=== PATIENT | male | born 1945 | race Caucasian/White ===

== ENCOUNTER 2021-05-02 09:57 | Emergency (ER) | payer BC, MEDICARE, SELFPAY ==
--- NOTE | ~2021-05-02 | CT_ITS ---
EXAMINATION: CT BRAIN AND CHEST X-RAY. CLINICAL INFORMATION: AMS. Confused. COMPARISON: CT brain 11/29/2019 TECHNIQUE: Chest one view. 5 mm thin axial and reformatted 2 mm thin sagittal and coronal images of brain were obtained without contrast. DLP [id number] FINDINGS: Chest: The lungs are well-expanded and clear. The heart size and pulmonary vascularity is normal. No gross bony abnormality seen. Brain: There is no acute intra-axial, extra-axial bleed, masses or midline shift. There is no acute infarct in evolution. There is no edema. The lateral ventricles are symmetrical in size and configuration and enlarged. Bone windows reveal no calvarial abnormality. There is no scalp soft tissue abnormality. Bilateral paranasal sinuses and mastoid air cells are well-aerated. CT/CT head/brain wo con IMPRESSION: Minimal left basilar atelectatic changes. Rest of the lungs are clear. No acute intracranial process seen Moderate cerebral volume loss.
[2021-05-02 10:04] VITALS: BP 146/69; BP 150/90; PULSE 78; PULSE 85; RESP 20; TEMP 36.8; O2SAT 96; BMI 26.9
--- NOTE | 2021-05-02 10:59 | ECG_ITS ---
Test Reason : ALTERED MENTAL Blood Pressure : / mmHG Vent. Rate : 074 BPM Atrial Rate : 074 BPM P-R Int : 174 ms QRS Dur : 096 ms QT Int : 430 ms P-R-T Axes : 033 -09 017 degrees QTc Int : 477 ms Sinus rhythm with frequent Premature ventricular complexes Otherwise normal ECG No previous ECGs available Referred By: Renetta Beasley Electronically Signed By:STANISLAW HART MD
--- NOTE | 2021-05-02 11:04 | PC.NURSE ---
daughter akash contacted. plan for cm to get involved after mc.
[2021-05-02 11:39] VITALS: BP 148/90; PULSE 74; RESP 16; O2SAT 98
[2021-05-02 11:52] LABS: MANUAL DIFF FLAG NO
[2021-05-02 11:55] LABS: Basophils Percent Auto 0.5 % (0-2); Eosinophils Absolute Auto 0.3 X10*3/uL (0.0-0.4); Eosinophils Percent Auto 3.8 % (0-4); Hemoglobin 12.4 g/dl (14.0-18.0); Imm Gran Abs Auto 0.03 X10*3/uL (0.00-0.03); Imm Gran Pct Auto 0.4 % (0.0-0.4); Lymphocytes Absolute Auto 2.2 X10*3/uL (1.2-4.9); Lymphocytes Percent Auto 25.8 % (20-40); Mean Corpuscular HGB Conc 34.4 g/dl (31.0-36.0); Mean Corpuscular Hemoglobin 33.2 pg (27.0-33.0); Mean Corpuscular Volume 96.3 fL (80-98); Mean Platelet Volume 10.4 fL (9.4-12.4); Monocytes Absolute Auto 0.6 X10*3/uL (0.1-1.2); Monocytes Percent Auto 7.5 % (2-11); Neutrophils Absolute Auto 5.3 X10*3/uL (2.0-8.3); Platelet Count 215 X10*3/uL (160-400); Red Blood Count 3.74 X10*6/uL (4.60-5.80); Red Cell Distribution Width 12.4 % (11.0-16.0); White Blood Count 8.5 X10*3/uL (4.8-10.8)
[2021-05-02 11:59] LABS: Prothrombin Time 11.3 SEC (10.8-13.0)
[2021-05-02 12:02] LABS: Partial Thromboplastin Time 38.2 SEC (24.1-38.0)
[2021-05-02 12:11] LABS: COVID-19 Test Negative (Negative)
[2021-05-02 12:23] LABS: Alanine Aminotransferase 33 U/L (0-40); Albumin Level 4.3 g/dL (3.5-5.0); Alkaline Phosphatase 72 U/L (39-117); Anion Gap 15 (12-20); Aspartate Amino Transferase 32 U/L (5-37); Bilirubin Direct 0.2 mg/dL (0.0-0.5); Bilirubin Total 0.4 mg/dL (0.0-1.0); Blood Urea Nitrogen 26 mg/dL (9-16); Carbon Dioxide 23 mmol/L (22-29); Chloride 105 mmol/L (96-108); Creatinine Clr Calc Pharmacy 31.4; Estimated Glomerular Filt Rate 36; Glucose Random 120 mg/dL (60-115); Lipase 49 U/L (8-78); Magnesium 1.8 mg/dL (1.6-2.6); Potassium 4.4 mmol/L (3.3-5.1); Sodium 139 mmol/L (135-145)
[2021-05-02] MEDS: 0.9 % Sodium Chloride 1,000 ML 999 ML IVCONT (13:14)
[2021-05-02 13:25] VITALS: BP 146/89; PULSE 78; RESP 16
[2021-05-02 13:36] LABS: Glucose Urine UA 250 MG/DL (NEG); Leukocyte Esterase Urine NEG (NEG); Nitrite Urine NEG (NEG); Urine Blood NEG (NEG); Urine Ketones NEG (NEG); Urine Protein TRACE MG/DL (NEG-TRACE)
[2021-05-02 13:37] LABS: Appearance Urine CLEAR; Color Urine YELLOW
--- NOTE | 2021-05-02 13:38 | ED.AMS ---
HPI - Altered Mental Status General Chief Complaint: Altered Mental Status Stated Complaint: AMS Time Seen by Provider: 05/02/21 10:49 Source: patient and EMS Mode of arrival: EMS History of Present Illness HPI narrative: 75-year-old male with past medical history of diabetes presenting to the ED BIBA after being found trying to enter [facility] confused/ AMS. Patient reports he was trying to get home/ the store but got lost and was driving with a suspended license. 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 Denies known injury/trauma or fall. Denies headache, CP / SOB, abdominal pain, nausea /vomiting, fever, chills. MD complaint: altered mental status and confusion Related Data Allergies Allergy/AdvReac Type Severity Reaction Status Date / Time No Known Allergies Allergy Unverified 05/02/21 10:59 Review of Systems Review of Systems: Constitutional: No Fever, No Chills, No Fatigue, No Malaise Cardiovascular: No Chest Pain, No SOB, No Edema Respiratory: No Cough, No Wheezing, No Dyspnea Gastrointestinal: No Nausea, No Vomiting, No Diarrhea, No Abdominal pain Genitourinary: No Dysuria, No Urinary Frequency, No Hematuria Musculoskeletal: No joint pain, No Joint Swelling Skin: No Skin Lesions, No rash Neuro: No Weakness, No Numbness, +AMS/confusion No Headache Yes all other systems are reviewed and are negative Neurologic: Reports confusion Psychiatric: Psychiatric: Reports confusion [facility] Past Medical History Attestation statement: The following information was validated with the patient. Medical History (Updated 05/02/21 @ 13:53 by ABDIAZIZ Queen) Diabetes Social History Social History Advance Directives: No Advance Directives Information Provided: No Physical Exam Vital Signs: Vital Signs: Last Vital Signs Temp 98.2 F 05/02/21 15:36 Pulse 72 05/02/21 15:36 Resp 12 05/02/21 15:36 BP 130/69 05/02/21 15:36 Pulse Ox 96 05/02/21 15:36 Body Mass Index 26.9 Const: Other: Pleasantly confused General: cooperative, comfortable, no acute distress and confusion Orientation/consciousness: oriented to person, oriented to place and confusion Limitations: no limitations HENMT: Head: Yes normal to inspection and Yes atraumatic Ears: hearing grossly normal bilaterally General nose exam: Normal external nose present Face and sinus: Yes normal facial exam Mouth: Normal oral and palatal mucosa present Eyes: General: appearance normal, both eyes and all related structures Pupils: Equal, round and reactive pupils present EOM: EOMs intact bilaterally Neck: Neck: Yes normal visual inspection and Yes no meningeal signs Resp: Effort & Inspection: normal respiratory effort Auscultation: clear to auscultation bilaterally, no rales and no wheezes Cardio: Rate: regular rate Heart sounds: S1 normal heart sound present and S2 normal heart sound present GI: Inspection: Yes normal to inspection Palpation (GI): Soft to palpation, nontender, no guarding and not rigid Skin: Rashes: no rashes Wounds: no wounds Neuro: General: oriented to person, oriented to place, tone normal, moves all extremities, no meningeal signs, no focal motor deficits, CN's II-XI intact bilaterally and confusion Cranial nerves: Yes CN's II-XII intact bilaterally and Yes Equal, round and reactive pupils present Motor exam (neuro): 5/5 motor strength present throughout, Pronator motor function not present and no tremor noted Coordination: [id number] test normal Romberg Test: Negative Extrem: General: Yes normal to inspection Course Course Course Narrative: - glucose 120 - no leukocytosis, H&H at baseline, renal function higher than baseline but chronically elevated > 1L IVF ordered - troponin negative, UA not infected XR chest 1V IMPRESSION: Minimal left basilar atelectatic changes. Rest of the lungs are clear. CT head/brain wo con IMPRESSION: No acute intracranial process seen Moderate cerebral volume loss - physician observation initiated at 1:52 p.m., patient needs more time to be evaluated by case management for possible placement -[id number]-- case management spoke to both the patient's daughters who feel patient is not a danger to himself at home, 1 daughter sees patient daily and drives him to and from work. Danni expressed concern of patients safety of having gas stove as well as vehicle in the house, daughters reported they took away the vehicle, and were recommended to shut the gas off. Patient owns his house /pays bills, owns 2 vehicles, and still works a job 5 days a week, does not qualify for home health aide. Case Management Danni stressed that dementia is a progressive disease and this needs to be addressed / will likely progressively Worsen MDM - Altered Mental Status MDM Narrative Medical decision making narrative: 75-year-old male with past medical history of diabetes presenting to the ED BIBA after being found trying to enter [facility] confused/ AMS. On exam VSS, NAD, A&O x2, pleasantly confused, no focal neuro deficits. No signs of trauma. Spoke to patient's daughter who reports this is patient's baseline, has undiagnosed dementia. 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 States patient does live alone, unknown how he got into a vehicle/ was driving around. They are interested in case management evaluation for help with services Will rule out metabolic / infectious etiology or ICH/CVA vs underlying dementia Plan: EKG, labs, UA, head CT, CXR, reassess, CM consult Medical Records Attestation: I reviewed the patient's medical records. Lab Data Attestation: I reviewed the patient's lab results. Result diagrams: 05/02/21 11:36 05/02/21 11:36 Labs: Lab Results 05/02/21 05/02/21 05/02/21 Range/Units 11:36 11:36 11:36 WBC 8.5 (4.8-10.8) X10*3/uL RBC 3.74 L (4.60-5.80) X10*6/uL Hgb 12.4 L (14.0-18.0) g/dl Hct 36.0 L (42-52) % MCV 96.3 (80-98) fL MCH 33.2 H (27.0-33.0) pg MCHC 34.4 (31.0-36.0) g/dl RDW 12.4 (11.0-16.0) % Plt Count 215 (160-400) X10*3/uL MPV 10.4 (9.4-12.4) fL Immature Gran % (Auto) 0.4 (0.0-0.4) % Neut % (Auto) 62.0 (45-73) % Lymph % (Auto) 25.8 (20-40) % Andrew % (Auto) 7.5 (2-11) % Eos % (Auto) 3.8 (0-4) % Baso % (Auto) 0.5 (0-2) % Lymph # (Auto) 2.2 (1.2-4.9) X10*3/uL Andrew # (Auto) 0.6 (0.1-1.2) X10*3/uL Eos # (Auto) 0.3 (0.0-0.4) X10*3/uL Baso # (Auto) 0.0 (0.0-0.2) X10*3/uL Abs Immat Gran (auto) 0.03 (0.00-0.03) X10*3/uL Absolute Neuts (auto) 5.3 (2.0-8.3) X10*3/uL Absolute Nucleated RBC 0.000 (0.0-0.012) X10*3/uL Nucleated RBC % (auto) 0.0 (0.0-0.2) /100WBC PT 11.3 (10.8-13.0) SEC INR 1.0 (0.9-1.1) APTT 38.2 H (24.1-38.0) SEC Sodium 139 (135-145) mmol/L Potassium 4.4 (3.3-5.1) mmol/L Chloride 105 (96-108) mmol/L Carbon Dioxide 23 (22-29) mmol/L Anion Gap 15 (12-20) BUN 26 H (9-16) mg/dL Creatinine 1.86 H (0.5-1.4) mg/dL Estim Creat Clear Calc 31.4 Estimated GFR 36 Random Glucose 120 H (60-115) mg/dL Calcium 9.0 (8.4-10.2) mg/dL Magnesium 1.8 (1.6-2.6) mg/dL Total Bilirubin 0.4 (0.0-1.0) mg/dL Direct Bilirubin 0.2 (0.0-0.5) mg/dL AST 32 (5-37) U/L ALT 33 (0-40) U/L Alkaline Phosphatase 72 (39-117) U/L Troponin I High Sens (<3.5-35.0) ng/L Total Protein 7.0 (6.5-8.0) g/dL Albumin 4.3 (3.5-5.0) g/dL Lipase 49 (8-78) U/L Urine Color Urine Appearance Urine pH (5.0-8.0) Ur Specific Verner (1.005-1.025) Urine Protein (NEG-TRACE) MG/DL Urine Glucose (UA) (NEG) MG/DL Urine Ketones (NEG) MG/DL Urine Blood (NEG) Urine Nitrite (NEG) Ur Leukocyte Esterase (NEG) Urine Opiates Screen (Not Detect) Ur Barbiturates Screen (Not Detect) Ur Phencyclidine Scrn (Not Detect) Ur Amphetamines Screen (Not Detect) U Benzodiazepines Scrn (Not Detect) Urine Cocaine Screen (Not Detect) U Marijuana (THC) Screen (Not Detect) COVID-19 (NEGRITO) (Negative) COVID-19 Clin Com 05/02/21 05/02/21 05/02/21 Range/Units 11:36 11:36 13:27 WBC (4.8-10.8) X10*3/uL RBC (4.60-5.80) X10*6/uL Hgb (14.0-18.0) g/dl Hct (42-52) % MCV (80-98) fL MCH (27.0-33.0) pg MCHC (31.0-36.0) g/dl RDW (11.0-16.0) % Plt Count (160-400) X10*3/uL MPV (9.4-12.4) fL Immature Gran % (Auto) (0.0-0.4) % Neut % (Auto) (45-73) % Lymph % (Auto) (20-40) % Andrew % (Auto) (2-11) % Eos % (Auto) (0-4) % Baso % (Auto) (0-2) % Lymph # (Auto) (1.2-4.9) X10*3/uL Andrew # (Auto) (0.1-1.2) X10*3/uL Eos # (Auto) (0.0-0.4) X10*3/uL Baso # (Auto) (0.0-0.2) X10*3/uL Abs Immat Gran (auto) (0.00-0.03) X10*3/uL Absolute Neuts (auto) (2.0-8.3) X10*3/uL Absolute Nucleated RBC (0.0-0.012) X10*3/uL Nucleated RBC % (auto) (0.0-0.2) /100WBC PT (10.8-13.0) SEC INR (0.9-1.1) APTT (24.1-38.0) SEC Sodium (135-145) mmol/L Potassium (3.3-5.1) mmol/L Chloride (96-108) mmol/L Carbon Dioxide (22-29) mmol/L Anion Gap (12-20) BUN (9-16) mg/dL Creatinine (0.5-1.4) mg/dL Estim Creat Clear Calc Estimated GFR Random Glucose (60-115) mg/dL Calcium (8.4-10.2) mg/dL Magnesium (1.6-2.6) mg/dL Total Bilirubin (0.0-1.0) mg/dL Direct Bilirubin (0.0-0.5) mg/dL AST (5-37) U/L ALT (0-40) U/L Alkaline Phosphatase (39-117) U/L Troponin I High Sens 4.0 (<3.5-35.0) ng/L Total Protein (6.5-8.0) g/dL Albumin (3.5-5.0) g/dL Lipase (8-78) U/L Urine Color YELLOW Urine Appearance CLEAR Urine pH 6.0 (5.0-8.0) Ur Specific Verner 1.020 (1.005-1.025) Urine Protein TRACE (NEG-TRACE) MG/DL Urine Glucose (UA) 250 H (NEG) MG/DL Urine Ketones NEG (NEG) MG/DL Urine Blood NEG (NEG) Urine Nitrite NEG (NEG) Ur Leukocyte Esterase NEG (NEG) Urine Opiates Screen (Not Detect) Ur Barbiturates Screen (Not Detect) Ur Phencyclidine Scrn (Not Detect) Ur Amphetamines Screen (Not Detect) U Benzodiazepines Scrn (Not Detect) Urine Cocaine Screen (Not Detect) U Marijuana (THC) Screen (Not Detect) COVID-19 (NEGRITO) Negative (Negative) COVID-19 Clin Com See Note 05/02/21 Range/Units 13:27 WBC (4.8-10.8) X10*3/uL RBC (4.60-5.80) X10*6/uL Hgb (14.0-18.0) g/dl Hct (42-52) % MCV (80-98) fL MCH (27.0-33.0) pg MCHC (31.0-36.0) g/dl RDW (11.0-16.0) % Plt Count (160-400) X10*3/uL MPV (9.4-12.4) fL Immature Gran % (Auto) (0.0-0.4) % Neut % (Auto) (45-73) % Lymph % (Auto) (20-40) % Andrew % (Auto) (2-11) % Eos % (Auto) (0-4) % Baso % (Auto) (0-2) % Lymph # (Auto) (1.2-4.9) X10*3/uL Andrew # (Auto) (0.1-1.2) X10*3/uL Eos # (Auto) (0.0-0.4) X10*3/uL Baso # (Auto) (0.0-0.2) X10*3/uL Abs Immat Gran (auto) (0.00-0.03) X10*3/uL Absolute Neuts (auto) (2.0-8.3) X10*3/uL Absolute Nucleated RBC (0.0-0.012) X10*3/uL Nucleated RBC % (auto) (0.0-0.2) /100WBC PT (10.8-13.0) SEC INR (0.9-1.1) APTT (24.1-38.0) SEC Sodium (135-145) mmol/L Potassium (3.3-5.1) mmol/L Chloride (96-108) mmol/L Carbon Dioxide (22-29) mmol/L Anion Gap (12-20) BUN (9-16) mg/dL Creatinine (0.5-1.4) mg/dL Estim Creat Clear Calc Estimated GFR Random Glucose (60-115) mg/dL Calcium (8.4-10.2) mg/dL Magnesium (1.6-2.6) mg/dL Total Bilirubin (0.0-1.0) mg/dL Direct Bilirubin (0.0-0.5) mg/dL AST (5-37) U/L ALT (0-40) U/L Alkaline Phosphatase (39-117) U/L Troponin I High Sens (<3.5-35.0) ng/L Total Protein (6.5-8.0) g/dL Albumin (3.5-5.0) g/dL Lipase (8-78) U/L Urine Color Urine Appearance Urine pH (5.0-8.0) Ur Specific Verner (1.005-1.025) Urine Protein (NEG-TRACE) MG/DL Urine Glucose (UA) (NEG) MG/DL Urine Ketones (NEG) MG/DL Urine Blood (NEG) Urine Nitrite (NEG) Ur Leukocyte Esterase (NEG) Urine Opiates Screen Not Detected (Not Detect) Ur Barbiturates Screen Not Detected (Not Detect) Ur Phencyclidine Scrn Not Detected (Not Detect) Ur Amphetamines Screen Not Detected (Not Detect) U Benzodiazepines Scrn Not Detected (Not Detect) Urine Cocaine Screen Not Detected (Not Detect) U Marijuana (THC) Screen Not Detected (Not Detect) COVID-19 (NEGRITO) (Negative) COVID-19 Clin Com ECG Data ECG #1: Attestation: I personally reviewed and interpreted this ECG as follows: ECG interpretation date: 05/02/21 ECG interpretation time: 11:50 Interpretation: EKG showing normal sinus rhythm with PVCs at a rate of 74. Artifact present. QTC 477. no STEMI Discharge Plan Discharge Clinical Impression: Confusion Patient Disposition: Home, Self-Care Instructions: Dementia (ED) Additional Instructions: you need to follow-up with her primary care doctor Continue taking all home prescribed medications Please do not drive If you have increased confusion, fever, cough, chills, or any falls return to the ED immediately Referrals: Physician,Unknown [Primary Care Provider] - 2 days
[2021-05-02 14:24] LABS: Amphetamine Screen Urine Not Detected (Not Detect); Barbiturates, Urine Not Detected (Not Detect); Benzodiazepines Screen Urine Not Detected (Not Detect); Cannabinoid Screen Urine Not Detected (Not Detect); Cocaine Screen Urine Not Detected (Not Detect); Opiate Screen Urine Not Detected (Not Detect); Phencyclidine Screen Urine Not Detected (Not Detect)
[2021-05-02 15:36] VITALS: BP 130/69; PULSE 72; RESP 12; TEMP 36.8; O2SAT 96
--- NOTE | 2021-05-02 17:02 | MHC.SL.SWA ---
Speech Pathologist Impression: Risk of Aspiration Oral Phase Dysphagia Risk of Aspiration Due to: Reduced Cognition Dysphasia Diet Status: Downgrade Liquid Consistency and Strategies for Safe Swallow: Liquid Intake Recommendation: Thin Liquid Intake Strategies: Small Sips Solid Food Consistency: Dietary Recommendations: Pureed (NDD1) Additional Modifications to Solid Foods: Patient is without his dentures and is edentulous. Patient tolerated pureed solids without difficulty and refused other consistencies, stating that he would not be able to chew without his dentures. Patient is recommended PUREED solids (NDD1) and thin liquids with pills WHOLE or CRUSHED in PUREE. Patient may be able to tolerate more advanced solids once he has his dentures. Recommend re-evaluate once patient has his dentures. Recommend further testing of cognitive linguistic skills. Oral Medication Intake: Whole with Puree Compensatory Strategies and Precautions to be Taken for Safe Swallow: Sitting Upright (90 deg) Small Bites and Sips Rate of Ingestion Change Supervision While Eating and Drinking for Safe Swallow: Total Supervision (1:1) Swallowing Recommended Treatments: Compens. Strategy Educat. Recommendation for Speech: Inpatient Speech Therapy Comment: SENIOR MEDICAL DIRECTOR will continue to follow during hospital stay. Manager Assessment Clinican/Clinical Fellow: No Supervisory Statement: I have reviewed and agree with the student/clinical fellow's documentation: N/A Speech Language Pathologist: Trudi Beltre M.A., [facility]-SENIOR MEDICAL DIRECTOR
--- NOTE | 2021-05-02 18:51 | MHC.CM.ED ---
CM met with patient at request of Renetta Palafox. Pt was driving without a license today, got confused and went to [facility] to ask for directions. They called the police. His car was impounded and [place] [facility] [place] CM met with patient. 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 He told CM he cooks in the microwave and takes care of himself. Pt could not remember his doctors name. Pt told CM that his daughter takes him to the grocery store. Pt admits to having a poor memory. Pt told me that his daughter has his other vehicle. Pt told me he owns his home. CM met with pt daughter, Yoselyn Ferrera ([phone]) in waiting room. Yoselyn tells me that her sister provides most care for her father. 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 Reports that pt drove last week to work and they called her, as they know he is not supposed to drive. Daughter took his car home. Yoselyn tells me that pt was at [facility] last week for this reason and was discharged home. Yoselyn tells CM that she is not worried about her father at home, as he is very regimented. Yoselyn will be driving patient home. Encouraged CM to call her sister, Lita Lanier ([phone]) for more information. CM explained to Yoselyn that dementia is a progressive disease and that these are signs that her father may need more help to remain at home. Encouraged Yoselyn to have a conversation with her sister about what they are going to do with Dad in the future. Explained that her father owns his home, 2 vehicles, and works, so he is not eligible for [facility] or care. Pt is not homebound, so he is not eligible for VNA services. CM questioned if her father has funds to pay for help at home as that is how he can get help at home. States he does, but he is very careful with his money. CM called Lita, pt daughter and HCP(on file). 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 She was told he does his work and meets job expectations. Lita told STONE that she is not worried about her father at home, only the driving. Pt does not have access to any vehicle now, and CM suggested that the family keep the vehicles at their homes. Lita tells STONE that her father is independent. Makes his work lunch. Cooks microwave foods, and cares for the house okay. She tells STONE he does his own laundry and does pay his bills, with prompts from her about what bills are due. Her father makes out all the checks. Lita tells STONE that her father sets up his own pill box and she checks them to be sure they are correct. Lita tells STONE her father is very regimented and follows a strict routine at home. Lita assures STONE that she sees her father 7 days a week and that 5 days a week she drives him to and from work. She brings him grocery shopping and he manages his own money. CM stressed to Lita that dementia is a progressive disease and that these episodes are the beginning of worsening dementia. CM gently stressed that Lita and her sister need to meet to discuss what to do about Dad in the future, as there will come a time when he will not be able to live safely at home. CM spoke with Lita about hiring help at home, as her father has funds. Lita states her father is very stingy with money. Suggested that perhaps he could move in with one of them. That is not an option now. Explained to Lita that if her father needs LTC in the future, he will not qualify for [facility] and his insurance does not pay for it. Lita tells STONE she will speak with her sister, but again stated that she feels her father is safe at home and that she sees him daily and helps him. CM suggested that they have the gas stove disconnected, to prevent any accidents with the stove. CM meet with Renetta Butler and explained all of the above conversations. Renetta is concerned about patient's forgetfulness, but is agreeable to discharge home. STONE spoke with RN's caring for patient. Expressed concerns about pt driving and his difficulty getting dressed to go home. Reiterated all of above conversations to both RN's. STONE called Aziza Gutierrez to review case. Pt d/c home. Daughter, Yoselyn to transport pt home.
== END 2021-05-02 18:48 | disposition home or self-care (01) ==
PROVIDERS: Physician Assistant; Emergency Provider Emergency Medicine Emergency Medical Services
DX: R41.0 Disorientation, unspecified (principal); E11.9 Type 2 diabetes mellitus without complications; Z20.822 Contact with and (suspected) exposure to COVID-19
CPT/HCPCS: 36415; 51701; 70450; 71045; 80048; 80076; 80307; 81003; 83690; 83735; 84484; 85025; 85610; 85730; 87635; 93005; 96360; 99285